=== PATIENT | male | born 1945 | race Caucasian/White ===

== ENCOUNTER → 2020-12-06 | Day surgery (SDC) | payer MEDICARE, OTHER ==
[~2020-12-06] VITALS: Ht 180.3 cm; Wt 87.1 kg
[~2020-12-06] MED LIST: ACETAMINOPHEN500 M1 PO; AMLODIPINE BESY10 MG PO; ATORVASTATIN CA10 MG PO; GABAPENTIN600 MG PO; LEVOTHYROXINE125 MCG PO; VALACYCLOVIR1000 MG PO; ZYRTEC10 M3 PO
[2020-12-06 12:55] LABS: BUN/CREAT RATIO (CALC) 8.9 RATIO; CREATININE 1.24 mg/dL (0.67-1.17); POTASSIUM 4.8 mmol/L (3.5-5.1)
== END | disposition home or self-care (01) ==
LOC: FAS 11:07
PROVIDERS: Anesthesiology
DX: G62.9 Polyneuropathy, unspecified (principal); Z53.8 Procedure and treatment not carried out for other reasons
CPT/HCPCS: 36415; 80048; J0690; J2001; J2250; J7120